=== PATIENT | male | born 1960 | race Caucasian/White ===

== ENCOUNTER → 2022-10-30 11:06 | Outpatient (BNVA) | payer MEDICARE, SELFPAY | PROVIDERS: PCP Registered Nurse; Referring Provider Registered Nurse; Visit Provider Specialist | DX: G20 Parkinson's disease (principal) | CPT/HCPCS: 99204 ==

== ENCOUNTER → 2022-12-25 13:19 | Outpatient (BNVA) | payer MEDICARE, SELFPAY | PROVIDERS: PCP Registered Nurse; Visit Provider Specialist | DX: G20 Parkinson's disease (principal); G90.3 Multi-system degeneration of the autonomic nervous system | CPT/HCPCS: 96116; 99214 ==

== ENCOUNTER → 2023-06-27 14:50 | Outpatient (BNVA) | payer MEDICARE, SELFPAY | PROVIDERS: PCP Registered Nurse; Visit Provider Specialist | DX: G20.B2 Parkinson's disease with dyskinesia, with fluctuations (principal) | CPT/HCPCS: 99215 ==

== ENCOUNTER → 2023-10-31 11:50 | Outpatient (BNVA) | payer MEDICARE, SELFPAY | PROVIDERS: PCP Registered Nurse; Visit Provider Specialist | DX: G20.B2 Parkinson's disease with dyskinesia, with fluctuations (principal); Z96.89 Presence of other specified functional implants | CPT/HCPCS: 95970; 99214; 99215 ==

== ENCOUNTER → 2024-03-03 13:57 | Outpatient (BNVA) | payer MEDICARE, SELFPAY | PROVIDERS: PCP Registered Nurse; Visit Provider Specialist | DX: G20.B2 Parkinson's disease with dyskinesia, with fluctuations (principal); G24.3 Spasmodic torticollis | CPT/HCPCS: 99213; 99214 ==

== ENCOUNTER → 2024-07-18 11:44 | Outpatient (BNVA) | payer MEDICARE, SELFPAY | PROVIDERS: PCP Registered Nurse; Visit Provider Specialist | DX: G24.3 Spasmodic torticollis (principal) | CPT/HCPCS: 64616; 99214; J0585 ==